=== PATIENT | male | born 1975 | race Two or more races ===

== ENCOUNTER 2018-04-01 09:45 | Emergency (ER) | payer MEDICAID ==
[~2018-04-01] VITALS: Ht 175.3 cm; Wt 146.1 kg
[2018-04-01 10:17] VITALS: BP 166/96
[2018-04-01] MEDS ORDERED: KETOROLAC TROMETH 60MG/2ML VIAL IM ONE (11:00)
== END 2018-04-01 11:16 | disposition home or self-care (01) ==
LOC: ER 09:45
DX: M23.92 Unspecified internal derangement of left knee (principal)
CPT/HCPCS: 96372; 99283; J1885